=== PATIENT | female | born 2000 | race Hispanic/Latino ===

== ENCOUNTER 2021-10-15 09:31 | Emergency (ER) | payer OTHER ==
[~2021-10-15] VITALS: Ht 167.6 cm; Wt 71.4 kg
[2021-10-15 09:32] VITALS: BP 103/52
[2021-10-15] MEDS ORDERED: PRENTAB53 PO (09:37)
[2021-10-15 11:28] LABS: BASO % 0.4 % (0.0-1.0); EOS # 0.1 10^3/uL (0.0-0.5); EOS % 0.7 % (0.0-3.0); HEMATOCRIT 32.2 % (36.0-47.0); LYMPH # 1.9 10^3/uL (1.5-5.0); MEAN CORPUSCULAR HEMOGLOBIN 28.7 pg (27.0-33.0); MEAN CORPUSCULAR HGB CONC 34.2 g/dl (32.0-36.5); MEAN CORPUSCULAR VOLUME 84.1 fl (80.0-96.0); MONO # 0.6 10^3/uL (0.0-0.8); MONO % 7.3 % (2.0-8.0); NEUTROPHILS # 5.5 10^3/uL (1.5-8.5); NEUTROPHILS % 67.4 % (36.0-66.0); PLATELET COUNT, AUTOMATED 202 10^3/uL (150-450); RED BLOOD COUNT 3.83 10^6/uL (4.00-5.40); WHITE BLOOD COUNT 8.1 10^3/uL (4.0-10.0)
== END 2021-10-15 12:51 | disposition home or self-care (01) ==
LOC: M ED 09:31
DX: O20.8 Other hemorrhage in early pregnancy (principal); N93.9 Abnormal uterine and vaginal bleeding, unspecified; Z3A.12 12 weeks gestation of pregnancy

== ENCOUNTER 2022-04-19 20:51 | Outpatient (CLI) | payer OTHER ==
[~2022-04-19] VITALS: Ht 167.6 cm; Wt 95.6 kg
[~2022-04-19 20:51] MED LIST: PRENTAB53 PO
[2022-04-19 21:09] VITALS: BP 130/82
[2022-04-19] MEDS ORDERED: HOME MED LIST COMPLETE! XX SCH (21:15)
[2022-04-19 22:01] VITALS: BP 119/74
== END 2022-04-20 00:25 | disposition home or self-care (01) ==
LOC: M LDO 20:51
PROVIDERS: ATTEND Obstetrics & Gynecology
DX: O47.1 False labor at or after 37 completed weeks of gestation (principal); Z3A.39 39 weeks gestation of pregnancy; O98.513 Other viral diseases complicating pregnancy, third trimester; U07.1 COVID-19
CPT/HCPCS: 59025; G0378; G0463

== ENCOUNTER 2022-04-20 12:58 | Inpatient (IN) | payer OTHER ==
[2022-04-20] VITALS (23 sets, daily range): BP systolic 104–156; BP diastolic 58–93
[~2022-04-20] VITALS: Ht 167.6 cm; Wt 94.8 kg
[2022-04-20] MEDS ORDERED: HOME MED LIST COMPLETE! XX SCH (13:25)
[2022-04-20] MEDS ORDERED: LACTATED RINGER'S 1000 ML IV STA (14:09)
[2022-04-20] MEDS ORDERED: LIDOCAINE 1% MDV 20ML VIAL INFIL PRN (14:10)
[2022-04-20] MEDS ORDERED: OXYTOCIN DRIP 30 UNITS in IV 1 EA IV PRN ×4 (14:10)
[2022-04-20] MEDS ORDERED: METHYLERGONOVINE MALEATE 0.2 MG/ML VIAL (J2210) IM PRN (14:10)
[2022-04-20] MEDS ORDERED: TRANEXAMIC ACID INJection 1,000 MG in NS 100 ML IV PRN (14:10)
[2022-04-20 14:46] LABS: HEMATOCRIT 38.9 % (36.0-47.0); MEAN CORPUSCULAR HEMOGLOBIN 29.3 pg (27.0-33.0); MEAN CORPUSCULAR HGB CONC 33.4 g/dl (32.0-36.5); MEAN CORPUSCULAR VOLUME 87.8 fl (80.0-96.0); PLATELET COUNT, AUTOMATED 241 10^3/uL (150-450); RED BLOOD COUNT 4.43 10^6/uL (4.00-5.40); WHITE BLOOD COUNT 13.2 10^3/uL (4.0-10.0)
[2022-04-20] MEDS ORDERED: FENTANYL 2MCG/ML ROPIVACAINE 0.2% IN 0.9% NACL 100ML IVBAG As Ordered ONE (17:09)
[2022-04-20] MEDS ORDERED: diphenhydrAMINE 50MG/ML VIAL (J1200) IV PRN (17:40)
[2022-04-20] MEDS ORDERED: EPIDURAL/PCA KEYS XX PRN (17:40)
[2022-04-20] MEDS ORDERED: NALOXONE INJ 0.4MG/1ML VIAL (J2310 PER 1MG) IV PRN (17:40)
[2022-04-20] MEDS ORDERED: LR 500 ML IV PRN (17:40)
[2022-04-20] MEDS ORDERED: ePHEDrine SULFATE 25 MG/5 ML(5MG/ML) SYRINGE IVP PRN (17:40)
[2022-04-20] MEDS ORDERED: ONDANSETRON 4MG 2ML VIAL IV PRN (17:40)
[2022-04-20] MEDS: FENTANYL/ROPIVACAINE/NACL BAG 100 ML EPIDURAL SCH (17:57)
[2022-04-20] MEDS: LR 1,000 ML IV SCH (20:08)
[2022-04-20] MEDS ORDERED: ACETAMINOPHEN 325 MG TAB PO ONE (22:10)
[2022-04-21] VITALS (20 sets, daily range): BP systolic 107–145; BP diastolic 60–92
[2022-04-21] MEDS: FENTANYL/ROPIVACAINE/NACL BAG 100 ML EPIDURAL SCH (01:10)
[2022-04-21] MEDS: LR 1,000 ML IV SCH ×3 (03:44→14:15)
[2022-04-21 06:15] LABS: CORD GAS HCO3 V 17.2 MEQ/L; CORD GAS O2 SAT V 81.7 %; CORD GAS PCO2 V 32.2 mmHg; CORD GAS PH V 7.345 UNITS; CORD GAS PO2 V 37.7 mmHg; CORD GAS SBC V 18.5 MEQ/L; CORD GAS TCO2 V 18.2 MEQ/L
[2022-04-21] MEDS ORDERED: ONDANSETRON 4MG 2ML VIAL IV PRN (06:15)
[2022-04-21] MEDS ORDERED: DOCUSATE SODIUM 100MG CAPSULE PO PRN (06:15)
[2022-04-21] MEDS ORDERED: METHYLERGONOVINE MALEATE 0.2 MG TAB PO PRN (06:15)
[2022-04-21] MEDS ORDERED: RHOGAM 300 MCG (1500 IU) INJ (J2790) IM SCH (06:15)
[2022-04-21] MEDS ORDERED: PROMETHAZINE 25 MG TAB PO PRN (06:15)
[2022-04-21 06:19] LABS: CORD GAS ABE A -11.1; CORD GAS HCO3 A 17.4 MEQ/L; CORD GAS PCO2 A 48.7 mmHg; CORD GAS PH A 7.172 UNITS; CORD GAS PO2 A 40.5 mmHg; CORD GAS SBC A 15.5 MEQ/L; CORD GAS TCO2 A 18.9 MEQ/L
[2022-04-21] MEDS: IBUPROFEN 800 MG TAB PO SCH ×3 (06:30→19:46)
[2022-04-21] MEDS: ACETAMINOPHEN 500 MG TAB PO SCH ×3 (06:41→12:33)
[2022-04-21] MEDS: PRENATAL VITAMINS CHEWABLE TABLET PO SCH (09:00)
[2022-04-21] MEDS: DIBUCAINE 1% OINTMENT 30GM TOP PRN (12:31)
[2022-04-22] MEDS: ACETAMINOPHEN 500 MG TAB PO SCH ×4 (00:15→17:20)
[2022-04-22] MEDS: IBUPROFEN 800 MG TAB PO SCH ×3 (04:13→19:45)
[2022-04-22 06:00] VITALS: BP 112/58
[2022-04-22 07:06] LABS: HEMATOCRIT 23.9 % (36.0-47.0); MEAN CORPUSCULAR HEMOGLOBIN 30.4 pg (27.0-33.0); MEAN CORPUSCULAR HGB CONC 33.5 g/dl (32.0-36.5); MEAN CORPUSCULAR VOLUME 90.9 fl (80.0-96.0); PLATELET COUNT, AUTOMATED 180 10^3/uL (150-450); RED BLOOD COUNT 2.63 10^6/uL (4.00-5.40); WHITE BLOOD COUNT 17.9 10^3/uL (4.0-10.0)
[2022-04-22] MEDS: PRENATAL VITAMINS CHEWABLE TABLET PO SCH (08:50)
[2022-04-22 18:00] VITALS: BP 111/59
[2022-04-23] MEDS: ACETAMINOPHEN 500 MG TAB PO SCH ×2 (00:06→06:01)
[2022-04-23] MEDS: IBUPROFEN 800 MG TAB PO SCH (04:02)
[2022-04-23 06:00] VITALS: BP 113/65
[2022-04-23] MEDS ORDERED: IBUP80TA PO (06:06)
[2022-04-23] MEDS ORDERED: COLA100C5 PO (06:06)
[2022-04-23] MEDS ORDERED: ACET-683 PO (06:06)
[2022-04-23] MEDS: DIBUCAINE 1% OINTMENT 30GM TOP PRN (06:07)
[2022-04-23] MEDS: PRENATAL VITAMINS CHEWABLE TABLET PO SCH (08:29)
[2022-04-23] MEDS ORDERED: MEASLES,MUMPS,RUBELLA VACCINE INJ (MMR-II) (90707) SC.IMMUN ONE (09:00)
== END 2022-04-23 11:13 | disposition home or self-care (01) | DRG 807 ==
LOC: M LDO 12:58 → M LDI 14:02 → M OBS 04-21 11:30
PROVIDERS: ADMIT Obstetrics & Gynecology; ATTEND Obstetrics & Gynecology
PROC: 10E0XZZ Delivery of Products of Conception, External Approach (ICD-10-PCS; principal; 2022-04-21)
PROC: 0KQM0ZZ Repair Perineum Muscle, Open Approach (ICD-10-PCS; 2022-04-21)
DX: O26.00 Excessive weight gain in pregnancy, unspecified trimester (principal); Z37.0 Single live birth; Z3A.39 39 weeks gestation of pregnancy; O69.82X0 Labor and delivery complicated by other cord entanglement, without compression, not applicable or unspecified; O70.1 Second degree perineal laceration during delivery